=== PATIENT | female | born 1990 | race Caucasian/White ===

== ENCOUNTER 2020-04-24 00:16 | Outpatient (CLI) | payer OTHER, SELFPAY ==
[2020-04-24 17:38] LABS: SARS-CoV-2 RNA PCR Negative
== END 2020-04-24 00:17 | disposition home or self-care (01) ==
LOC: ANHCOVIDDT 00:16
PROVIDERS: Visit Provider Obstetrics & Gynecology
DX: Z01.812 Encounter for preprocedural laboratory examination (principal); Z20.822 Contact with and (suspected) exposure to COVID-19
CPT/HCPCS: C9803; U0003; U0005

== ENCOUNTER 2020-04-27 01:44 | Day surgery (SDC) | payer OTHER, SELFPAY ==
[2020-04-22 13:43] VITALS: BMI 34.4
--- NOTE | 2020-04-24 16:02 | WPDANESEPPF ---
Anes - Initial Pre Proc Eval Procedure: Operation Date: 04/27/20 10:30 Proposed Procedures p Hysteroscopy, Naila Endometrial Ablation - Nicko Stern MD s Laparoscopic Bilateral Tubal Sterilization With Cautery - Nicko Stern MD Date/Time: 04/24/20 16:02 Surgeon: Nicko Stern MD Pre Op Diagnosis: Menorrhagia and sterilization Patient Data Age: 29 Gender: F Height: 1.7 m Weight: 99.79 kg Allergies Allergy/AdvReac Type Severity Reaction Status Date / Time No Known Allergies Allergy Verified 04/27/20 09:17 Home Medications Medication Instructions Recorded Confirmed Type zefsnux-dfooopebfnpje-qjcgkluc 1 tablet PO Q4-6H PRN 04/22/20 04/22/20 History carvedilol 6.25 mg PO BID 04/22/20 04/27/20 History sacubitril-valsartan [Entresto] 0.5 tablet PO BID 04/22/20 04/27/20 History spironolactone 25 mg PO DAILY 04/22/20 04/27/20 History sumatriptan succinate 50 mg PO Q4-5H PRN 04/22/20 04/22/20 History Patient hx anesthesia problems: none Family hx anesthesia problems: none ON LICENSE OF [facility] Past Medical History Medical History (Updated 04/24/20 @ 16:05 by Jeremiah Fung MD) Cardiomyopathy dx 10/2010 DVT (deep venous thrombosis) HTN (hypertension) Hypercholesterolemia Obesity Pulmonary embolism 10/2010 Social History Social History Smoking packs per day: 0.5 Smoking cigarettes per day: 10.0 Years smoked: 10 Smoking pack-years: 5.00 Smoking status: Current every day smoker Tobacco type: cigarettes Second hand tobacco smoke exposure: Yes Alcohol intake: former Substance use: former Substance use type: former substance user, marijuana and other Last use: 07/2018 Living arrangements: with roommate(s) Spiritual care concerns: No Anes - Eval Final PreProcedure Day of Procedure 04/24/20 16:02 Patient weight: obese Heart: regular rate and rhythm Lungs: clear to auscultation and normal air movement Airway: Mallampati scale class II Neurological: alert and oriented Last oral intake: >/= 8 hours ASA classification: IV Emergent: no Anesthetic plan: proceed Anesthesia type and monitoring: general ETT Informed Consent: The patient's anesthetic plan and its attendant risks and benefits were discussed with the patient/family/POA. Questions were solicited and answers provided to the satisfaction of the patient/family/POA.
[2020-04-27] VITALS (9 sets, daily range): BP systolic 92–107; BP diastolic 59–76; PULSE 59–96; RESP 14–16; TEMP 36.3–36.4; O2SAT 96–100
--- NOTE | 2020-04-27 07:23 | WPDHPUPDATE1 ---
History and Physical Update Update Date/Time: 04/27/20 07:23 History and Physical has been reviewed, including an updated exam of the patient. There are NO changes in the patient's condition. Risks, benefits, and alternatives have been discussed and questions answered. Patient agrees to proceed with procedure.
[2020-04-27] MEDS: ACETAMINOPHEN 500 MG TABLET 1000 MG PO (09:19)
[2020-04-27] MEDS: LACTATED RINGERS 1,000 ML 30 ML IV CONT (09:20)
[2020-04-27] MEDS: KETOROLAC 15 MG/ML VIAL (*BKC) IV PUSH (09:21)
[2020-04-27 09:42] LABS: Anion Gap 4 mmol/L (8-16); Blood Urea Nitrogen 14 mg/dL (7-17); Calcium 8.6 mg/dL (8.4-10.2); Carbon Dioxide 23 mmol/L (22-30); Chloride 109 mmol/L (98-107); Estimated CRCL calculation 90 ml/min; Estimated Glomerular Filt Rate > 60; Glucose 102 mg/dL (65-105); Potassium 4.4 mmol/L (3.4-5.0); Sodium 136 mmol/L (137-145)
--- NOTE | 2020-04-27 11:12 | PM.PROC ---
Procedure Note - Detailed Date of procedure: 04/27/20 Pre-op diagnosis: Menorrhagia and sterilization Post-op diagnosis: same Procedure performed: Laparoscopic bilateral tubal ligation, Endometrial Ablation Description of procedure: Patient was taken the operating room. She has prepped draped in the dorsal lithotomy position after induction of general anesthesia. A 5 mm abdominal incision was made in left upper quadrant of the abdomen with scalpel. A 5 mm trocars inserted the intra-abdominal cavity under direct visualization of the scope. Pneumoperitoneum was achieved. A 5 mm periumbilical incision was made using a scalpel on the abdominal scan. A 5 mm trocar was inserted the intra-abdominal cavity under visualization of the scope. The fallopian tube was grasped with the bipolar cautery in the ampullary region. It was completely desiccated in a 1.5 cm area of the fallopian tube. This was performed in identical fashion on the contralateral side. The instruments were withdrawn. The pneumoperitoneum was reduced. The trocars were removed. The skin was closed with subcuticular 4 Monocryl. This incisions were covered with Dermabond. Our attention was then turned to the endometrial ablation portion of the procedure. A speculum was placed in the vagina. The cervix was grasped with a tenaculum. The cervix was dilated to approximately 8 mm with Peña dilators. The hysteroscope was inserted. And the below findings were noted. Measurements of the cervix were taken using the uterine sound and the hysteroscope. The intrauterine cavity measurements were entered into the hand piece of the device. The device was inserted the intrauterine cavity. The array was expanded. The balloon cuff was inflated. The uterus was airtight. The energy and safety cycles within initiated. They were completed under 3 minutes. The balloon cuff was collapsed, the array was collapsed, and the device was removed the uterine cavity. the hysteroscope was reinserted and the cavity was well desiccated. It appears that the restriction of the hysteroscope perforated the left cornual area the uterus. It was clearly observed. Hysteroscope was withdrawn. The tenaculum was removed. The speculum was removed. The trocars were reinserted through the same incisions, a 3rd trocar was inserted in the left lower quadrant using a 5 mm trocar through a 5 mm skin incision was created with a scalpel. These were all done under direct visualization. The pelvis was examined in great detail. There was no blanching or desiccation on the rectum or any of the bowel. The only organs in the rectum or the rectum and omentum. The perforation site was cauterized. Pelvis was area and the trocars were removed after pneumoperitoneum was reduced. Skin was closed subcuticular for Monocryl and covered Dermabond. The patient tolerated the procedure well. She was taken to recover room in stable condition. Anesthesia: GETA Surgeon: Nicko Stern MD Estimated blood loss (mL): 10 Drains: No Packing: No Pathology: none sent Complications: Other complications (Uterine perforation) Condition: stable Disposition: PACU Findings: Normal female pelvic anatomy.
[2020-04-27] MEDS: fentaNYL CITRATE INJ (*CRX) 100 MCG/2 ML VIAL 25 MCG IV PUSH (11:38)
[2020-04-27] MEDS: oxyCODONE HCL (*CRX) 5 MG TAB IR PO (12:16)
== END 2020-04-27 13:13 | disposition home or self-care (01) ==
PROVIDERS: Anesthesiology; Visit Provider Obstetrics & Gynecology
PROC: 0U5B8ZZ Destruction of Endometrium, Via Natural or Artificial Opening Endoscopic (ICD-10-PCS; CPT 58563; principal; 2020-04-27 10:30)
PROC: (CPT 58671; 2020-04-27 10:30)
DX: N92.0 Excessive and frequent menstruation with regular cycle (principal); Z30.2 Encounter for sterilization; I10 Essential (primary) hypertension; E78.00 Pure hypercholesterolemia, unspecified; I42.9 Cardiomyopathy, unspecified; Z86.711 Personal history of pulmonary embolism; Z86.718 Personal history of other venous thrombosis and embolism; F17.210 Nicotine dependence, cigarettes, uncomplicated; E66.9 Obesity, unspecified; Z68.35 Body mass index [BMI] 35.0-35.9, adult
CPT/HCPCS: 58563; 58670; 36415; 80048; A9270; J0330; J1100; J1885; J2250; J2370; J2405; J2704; J3010; J7120